=== PATIENT | female | born 1990 | race Caucasian/White ===

== ENCOUNTER 2023-06-23 11:40 | Inpatient (IN) | payer BC ==
[2023-07-25 06:18] VITALS: BMI 24.7
[2023-07-25] MEDS ORDERED: Oxytocin 30 units/NS 500 ML 500 ML IV SCH ×3 (06:29→15:45)
[2023-07-25] MEDS ORDERED: Ondansetron PF 4 MG/2 ML Vial IVP PRN ×3 (06:29→15:31)
[2023-07-25] MEDS ORDERED: Acetaminophen 500 MG TAB PO PRN (06:29)
[2023-07-25] MEDS ORDERED: fentaNYL 50 mcg/mL 1 mL Vial SLOW IVP PRN (06:29)
[2023-07-25] MEDS ORDERED: Carboprost 250 MCG/ML AMP IM PRN (06:29)
[2023-07-25] MEDS ORDERED: Methylergonovine 0.2 MG/ML VIAL IM PRN (06:29)
[2023-07-25] MEDS ORDERED: Diphenoxylate HCl/Atropine Tablet PO PRN ×2 (06:29)
[2023-07-25] MEDS ORDERED: Lidocaine 1% (PF) 30 ML VIAL SC PRN (06:29)
[2023-07-25] MEDS ORDERED: Misoprostol 200 MCG TAB PR PRN (06:29)
[2023-07-25] MEDS ORDERED: hydrALAZINE 20 MG/ML VIAL SLOW IVP PRN ×2 (06:29→15:31)
[2023-07-25] MEDS ORDERED: HYDROcodone/Acetaminophen 5/325 mg Tablet PO PRN ×2 (06:29)
[2023-07-25] MEDS ORDERED: Promethazine HCl 25 MG/ML VIAL IM PRN ×2 (06:29→10:34)
[2023-07-25 06:59] LABS: Hematocrit 33.9 % (34.9-44.5); Hemoglobin 11.8 g/dL (12.0-15.5); Mean Corpuscular HGB CONC 34.8 g/dL (32.0-36.0); Mean Corpuscular Hemoglobin 31.1 pg (27.0-33.0); Mean Corpuscular Volume 89.2 fl (81.6-98.3); Mean Platelet Volume 11.8 fl (7.4-10.4); Platelet Count 121 10x3/uL (150-450); White Blood Cell (WBC) Count 9.9 10x3/uL (3.5-10.5)
[2023-07-25 07:20] LABS: HBsAg Index 0.19 S/CO (0-0.99); Hep B Surf Ag - L&D Non-Reactive S/CO (NonReactive)
[2023-07-25 07:22] LABS: Syphilis Antibody Nonreactive (Nonreactive); Syphilis Antibody Index 0.06 S/CO (<1.00 Non-Reactive)
[2023-07-25 07:23] LABS: HIV (1/2) Antibody/Antigen Non-Reactive (NonReactive); HIV 1/2 INDEX 0.22 S/CO (<1.00)
[2023-07-25] MEDS: Oxytocin 30 units/NS 500 ML 500 ML IV SCH (07:45)
[2023-07-25] MEDS: Lactated Ringer's 1,000 ML IV SCH (07:50)
[2023-07-25] MEDS ORDERED: Naloxone HCl 0.4 mg/ml Vial IVP PRN ×2 (10:34)
[2023-07-25] MEDS ORDERED: ePHEDrine Sulfate 50 MG/10 ML VIAL SLOW IVP PRN (10:34)
[2023-07-25] MEDS ORDERED: Lactated Ringer's 500 ML IV PRN (10:34)
[2023-07-25] MEDS ORDERED: Moisturizing Cream (Eucerin) 113 GM JAR TOP PRN (10:34)
[2023-07-25] MEDS ORDERED: diphenhydrAMINE 50 MG/ML VIAL IVP PRN (10:34)
[2023-07-25] MEDS ORDERED: Communication Order-Pharmacy FS SCH (10:45)
[2023-07-25] MEDS: fentaNYL 2 mcg/Ropivacaine 0.2% Epidural 100 ML CADD EPIDURAL SCH (11:30)
[2023-07-25] MEDS ORDERED: Preparation H Ointment 28 GM TUBE PR PRN (15:31)
[2023-07-25] MEDS ORDERED: Bisacodyl 10 MG SUPP PR PRN (15:31)
[2023-07-25] MEDS ORDERED: Lanolin Ointment 7 GM TUBE TOP PRN (15:31)
[2023-07-25] MEDS ORDERED: diphenhydrAMINE 25 MG CAP PO PRN (15:31)
[2023-07-25] MEDS ORDERED: Benzocaine-Menthol 82.5 ML CAN TOP PRN (15:31)
[2023-07-25] MEDS ORDERED: Milk Of Magnesia 30 ML UDCUP PO PRN (15:31)
[2023-07-25] MEDS: Acetaminophen 325 MG TAB PO PRN (17:13)
[2023-07-25] MEDS: Ibuprofen 800 MG TAB PO PRN (17:14)
[2023-07-25] MEDS: Ferrous Sulfate 325 MG TAB PO SCH (17:15)
[2023-07-25] MEDS: Docusate 100 MG CAP PO PRN (17:15)
[2023-07-25] MEDS: Boostrix 0.5 ML (Tdap) VIAL (>/=7 yrs of age) IM ONE (18:23)
[2023-07-25] MEDS: Erythromycin Base 0.5% Oint 1 GM TUBE ONE (18:31)
[2023-07-25] MEDS: Phytonadione Neonatal 1 MG/0.5 ML AMP ONE (18:31)
[2023-07-25] MEDS: fentaNYL/Ropivacaine Epidural 100 ML ONE (18:31)
[2023-07-25] MEDS: Docusate 100 MG CAP PO SCH (18:32)
[2023-07-26] MEDS: Ibuprofen 800 MG TAB PO SCH (00:28)
[2023-07-26 03:35] LABS: Hematocrit 29.9 % (34.9-44.5); Hemoglobin 10.6 g/dL (12.0-15.5); Mean Corpuscular HGB CONC 35.5 g/dL (32.0-36.0); Mean Corpuscular Hemoglobin 31.6 pg (27.0-33.0); Mean Corpuscular Volume 89.3 fl (81.6-98.3); Mean Platelet Volume 11.7 fl (7.4-10.4); Platelet Count 112 10x3/uL (150-450); RBC Distribution Width 15.2 % (11.5-14.5); Red Blood Cell (RBC) Count 3.35 10x6/uL (3.90-5.03); White Blood Cell (WBC) Count 14.6 10x3/uL (3.5-10.5)
[2023-07-26] MEDS ORDERED: Bupivacaine PF 0.5% 30 ML VIAL ONE (08:00)
[2023-07-26] MEDS ORDERED: HYDROcodone/Acetaminophen 5/325 mg Tablet PO PRN ×2 (10:35)
[2023-07-26] MEDS ORDERED: Zolpidem Tartrate 5 MG TAB PO PRN (10:35)
[2023-07-26 21:36] VITALS: BP 105/71; TEMP 97.5
== END 2023-07-27 14:15 | disposition home or self-care (01) | DRG 807 ==
LOC: CSHLD 07-25 05:36 → CSHPP 07-25 18:10
PROVIDERS: ADMIT Obstetrics & Gynecology; ATTEND Obstetrics & Gynecology
PROC: 10E0XZZ Delivery of Products of Conception, External Approach (ICD-10-PCS; principal; 2023-07-25)
PROC: 10907ZC Drainage of Amniotic Fluid, Therapeutic from Products of Conception, Via Natural or Artificial Opening (ICD-10-PCS; 2023-07-25)
PROC: 3E033XZ Introduction of Vasopressor into Peripheral Vein, Percutaneous Approach (ICD-10-PCS; 2023-07-25)
DX: O76 Abnormality in fetal heart rate and rhythm complicating labor and delivery (principal); Z37.0 Single live birth; Z3A.39 39 weeks gestation of pregnancy
CPT/HCPCS: 36415; 85027; 86780; 86850; 86900; 86901; 87340; 87389; J2590; J7120